=== PATIENT | male | born 1980 | race Caucasian/White ===

== ENCOUNTER 2022-06-01 12:51 | Emergency (ER) | payer OTHER ==
[~2022-06-01] VITALS: Ht 182.8 cm; Wt 97.5 kg
== END 2022-06-01 16:45 | disposition home or self-care (01) ==
LOC: ED 12:51
DX: S01.01XA Laceration without foreign body of scalp, initial encounter (principal); S09.90XA Unspecified injury of head, initial encounter; W22.8XXA Striking against or struck by other objects, initial encounter; Y93.89 Activity, other specified; Y92.89 Other specified places as the place of occurrence of the external cause; Y99.8 Other external cause status